=== PATIENT | male | born 1950 | race Caucasian/White ===

== ENCOUNTER 2020-12-02 09:26 | Inpatient (IN) | payer OTHER, MEDICARE ==
[~2020-12-02] VITALS: Ht 175.3 cm; Wt 84.1 kg
[2020-12-02] VITALS (15 sets, daily range): BP systolic 152–177; BP diastolic 82–121
[2020-12-02 09:33] LABS: HEMATOCRIT 42.8 % (42.0-52.0); HEMOGLOBIN 14.3 gm/dL (14.0-18.0); MCH 28.7 pg (26.0-34.0); MCHC 33.5 g/dL (28.0-37.0); MCV 85.7 fL (80.0-100.0); MPV 7.6 fl. (7.2-11.1); RBC 4.99 mil/uL (4.50-6.00); RDW-CV 15.9 % (10.5-14.5); WBC 7.7 thou/uL (4.0-11.0)
[2020-12-02 09:44] LABS: CALCIUM 9.3 mg/dL (8.5-10.1); CREATININE 1.2 mg/dL (0.6-1.3); POTASSIUM 3.1 mmol/L (3.5-5.1)
[2020-12-02 09:49] LABS: ALBUMIN 3.9 g/dL (3.4-5.0); APTT 23.9 Seconds (25.0-31.3); PROTIME 10.3 Seconds (9.20-11.50); TOTAL BILIRUBIN 0.8 mg/dL (<0.1-1.0); TOTAL PROTEIN 8.6 g/dL (6.4-8.2)
[2020-12-02 10:01] LABS: URINE BILIRUBIN NEGATIVE (Negative); URINE BLOOD NEGATIVE (Negative); URINE CLARITY CLEAR; URINE COLOR YELLOW; URINE GLUCOSE-RANDOM NEGATIVE (Negative); URINE KETONES NEGATIVE (Negative); URINE LEUKOCYTES NEGATIVE (Negative); URINE NITRITE NEGATIVE (Negative); URINE PROTEIN NEGATIVE (Negative); URINE SPECIFIC GRAVITY >= 1.030 (1.005-1.030); URINE UROBILINOGEN 0.2 E.U./dl (0.2-1.0)
--- NOTE | 2020-12-02 12:29 | NUR ---
SEE CODE STROKE FLOWSHEET FOR ADDITIONAL DOCUMENTATION.
[2020-12-02 13:40] LABS: MAGNESIUM 1.9 mg/dL (1.8-2.4)
--- NOTE | 2020-12-02 17:15 | NUR ---
PT UNABLE TO GIVE DEFINITIVE INFORMATION ON FAMILY DOCTOR, PHARMACY, OR HOME MED LIST. HAS HAD SOME RX'S FILLED AT [facility] ([phone]), THIS PHARMACY CONFIRMED PREVIOUS RX'S FOR METOPROLOL TARTRATE 100 MG DAILY AND NORVASC (AMLODIPINE) 5MG DAILY PRESCRIBED BY DR DEBBIE HORNER, THESE HAVE NOT BEEN FILLED AT THIS PHARMACY SINCE 02/01/2020. PT SHOWED A PICTURE OF A DR DEBBIE HORNER IN [place] AND AFFIRMS THAT THIS IS HIS PHYSICIAN ([phone]), UNABLE TO CONFIRM THIS SHIFT DUE TO OFFICE BEING CLOSED. PT ALSO HAD RECENT SURGERY AT [facility] (LATE FALL POSSIBLY), THIS MAY BE ANOTHER AVENUE FOR OBTAINING SOME MEDICAL HX AND MED LIST ([phone]).
[2020-12-03] VITALS (25 sets, daily range): BP systolic 130–155; BP diastolic 58–85
[2020-12-03 07:40] LABS: ALBUMIN 3.7 g/dL (3.4-5.0); ALKALINE PHOSPHATASE 77 U/L (46-116); ANION GAP 9 mmol/L (7-16); BUN 15 mg/dL (7-18); CALCIUM 8.6 mg/dL (8.5-10.1); CHLORIDE 102 mmol/L (98-107); CHOLESTEROL 186 mg/dL (<200); CO2 30 mmol/L (21-32); CREATININE 1.2 mg/dL (0.6-1.3); GLUCOSE 103 mg/dL (70-99); HDL CHOLESTEROL 41 mg/dL (>40); LDL CHOLESTEROL 123 mg/dL (<100); POTASSIUM 3.5 mmol/L (3.5-5.1); SGOT 20 U/L (15-37); SGPT 22 U/L (30-65); SODIUM 141 mmol/L (136-145); TC:HDL 4.5 Ratio (Not establshd); TOTAL BILIRUBIN 0.9 mg/dL (<0.1-1.0); TOTAL PROTEIN 8.4 g/dL (6.4-8.2); TRIGLYCERIDE 112 mg/dL (<150); VLDL 22 mg/dL (<40)
[2020-12-03 07:56] LABS: SERUM ASSESSMENT Clear
--- NOTE | 2020-12-03 08:28 | NUR ---
3519 ASSUMED CARE OF PATIENT. PLEASE SEE DOCUMENTED ASSESSMENT AND NIH CHARTING. PLAN IS TO REPEAT HEAD CT THIS MORNING AND WORK WITH THERAPIES
--- NOTE | 2020-12-03 09:53 | NUR ---
LEFT MESSAGE WITH PATIENT'S DAUGHTER ETHAN TO INFORM US OF PATIENT'S MEDICATION LIST
--- NOTE | 2020-12-03 10:55 | NUR ---
MESSAGE LEFT WITH NEUROLOGY TO CALL REGARDING REPEAT CT SCAN.
--- NOTE | 2020-12-03 11:32 | NUR ---
[address] DR QUIÑONES. PT HERE TO WORK WITH PT. SISTER AT BEDSIDE. DAUGHTER CALLED AND STATED THAT PT HAS NO HOME MEDS. SGE FOUND ONLY ONE PRE-OP MEDICATION FROM HIS HIP SURGERY A YEAR AGO.
--- NOTE | 2020-12-03 12:09 | EKG ---
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
--- NOTE | 2020-12-03 12:44 | NUR ---
Nutrition: Pt admitted with stroke. Assessed for Perez score 11. No wounds noted. Wt: 186#. Ground/nectar thick diet. Albumin 3.7. Chart reviewed. No nutrition interventions needed at this time. Mild risk.
--- NOTE | 2020-12-03 14:10 | NUR ---
Admitted from ER by EMS, dound down in [facility]. Est time lapse from last time seen was 45minutes. Pt had emesis around face. EMS reported significant right sided deficient and Dysarthric speech Mental Status upon admission Unable to understand pt but he was attempting to communicate verbally Living Arrangements: Stairs Elevator House Lives with: Lives alone in house Support system: Name Phone number Relationship If different than face sheet Fernanda Darlin [phone] Dtr Can patient return to prior living arrangements? Yes Notes: Family support: pt has sone that lives in [facility]. Another son and dtr who live in [facility]. Fernanda reports all are active in patients life. Activities of daily living: Independent all ADLS Typically drives grandson to school each day, day of event did not due to school being virtual that day Assistive device: No DME used Has had both hips replaced. Prior resource use: Discussed Acute Rehab possiblity due to R sided condition precently Case and plan of care reviewed with MD. CM will continue to follow for discharge planning needs. Anticipate ARU or SNF need at this time.
--- NOTE | 2020-12-03 17:22 | NUR ---
PT PROGRESSING TOWARDS GOALS. CT OF HEAD REPEATED AND RESULTS NOTED. PT ABLE TO WORK WITH THERAPIES AND START MODIFIED DIET. NIH CHARTED. IV FLUIDS STARTED THIS AFTERNOON. FAMILY HAS VISITED
[2020-12-04] VITALS (23 sets, daily range): BP systolic 115–170; BP diastolic 53–125
[2020-12-04 02:06] LABS: GLYCOHEMOGLOBIN (HGB A1C) 5.8 % (4.8-5.6)
--- NOTE | 2020-12-04 06:22 | NUR ---
ASSUMED CARE AT 1900H, ON NC AT 2LPM AND TOLERATED. PT WITH SEVERE APHASIA AND CAN ONLY SAY YES OR N0. PT FOLLOWED COMMANDS. NIH OF 13. NO BLEEDING NOTED. PT GOT FEVERISH AND TYLENOL GIVEN. ARROUND 0400H, PT BECAME LETHURGIC AND HARD TO WAKE UP. NEURO INFORMED WITH ORDER MADE AND CARRIED OUT. STAT CT HEAD DONE WITH NO SIGNIFICANT CHANGES. PT BACK TO INITIAL MENTATION IN MY SHIFT. CONTINUE MONITORING AND TOWARDS GOALS.
--- NOTE | 2020-12-04 13:12 | NUR ---
Case and plan of care reviewed with MD. PT/OT/Sp consulted for eval,Anticipating ARU/SNF need at discharge. Plans is to update LOC to tele and transfer out ICU. CM will continue to follow for discharge planning needs. Awaiting PT/OT/SP evaluations.
--- NOTE | 2020-12-04 13:46 | NUR ---
PT COUGHED ON AND OFF WITH BREAKFAST THIS AM, SPEECH NOTIFIED. POST SPEECH EVALUATION, DIET CHANGED TO MECH GROUND/ HONEY THICK LIQUID. TOLERATED LUNCH SOMEWHAT BETTER WITH NO COUGHS. DISCUSSED WITH DR QUIÑONES, HE WANTS PT MONITORED IN THE ICU TONIGHT. CXR DONE FOR CONCERNS OF ASPIRATION, NO ACUTE PROCESS IDENTIFIED.
--- NOTE | 2020-12-04 14:35 | 2DMMODE ---
[place] [address] 2 D/M-MODE ECHOCARDIOGRAM Name: AKUA WAGNER Room: [address] ADM IN Leobardo#: [id number] Admission: 12/02/20 Attend Phys: Jesika Mg MD Discharge: Date of : 48 Date of Service: 12/04/20 1435 Report #: [id number] THIS REPORT FOR: cc: FAM - Family physician unknown FAM - Family physician unknown Ahsan Hale MD [facility] ~ APPROVED REPORT Study performed: 12/03/2020 15:51:50 EXAM: Comprehensive 2D, Doppler, and color-flow Echocardiogram Patient Location: In-Patient Room #: [facility] Status: routine BSA: 2.00 HR: 82 bpm BP: 146/81 mmHg Rhythm: NSR Other Information Study Quality: Good Indications CVA/TIA CAD Echo Enhancing Agent Indication: Rule out Shunt Agent(s) / Amount(s) Used: Agitated Saline 10 cc 2D Dimensions IVSd: 9.97 (7-11mm) LVOT Diam: 21.20 (18-24mm) LVDd: 43.28 mm PWd: 7.99 (7-11mm) Ascending Ao: 32.93 (22-36mm) LVDs: 27.27 (25-40mm) Aortic Root: 35.02 mm Volumes Left Atrial Volume (Systole) LA ESV Index: 24.10 mL/m2 Aortic Valve AoV Peak Robinson.: 1.38 m/s AO Peak Gr.: 7.56 mmHg LVOT Max P.45 [place] [address] 2 D/M-MODE ECHOCARDIOGRAM Name: KRISTY,HAROLD Room: [address] IN [facility]#: [id number] Admission: 12/02/20 Attend Phys: Jesika Mg MD Discharge: Date of : 48 Date of Service: 12/04/20 1435 Report #: [id number] Mean Gr.: 4.32 mmHg LVOT Mean P.67 mmHg LVOT Max V: 0.93 m/s AO V2 VTI: 24.47 cm LVOT Mean V: 0.59 m/s TARA (VTI): 2.91 cm2 LVOT V1 VTI: 20.20 cm Mitral Valve E/A Ratio: 1.27 MV Decel. Time: 250.70 ms MV E Max Robinson.: 0.68 m/s MV PHT: 72.70 ms MVA (PHT): 3.03 cm2 TDI E/Lateral E': 4.86 E/Medial E': 7.56 Medial E' Robinson.: 0.09 m/s Lateral E' Robinson.: 0.14 m/s Pulmonary Valve PV Peak Robinson.: 1.01 m/s PV Peak Gr.: 4.04 mmHg Left Ventricle The left ventricle is normal size. There is normal LV segmental wall motion. There is normal left ventricular wall thickness. Left ventricular systolic function is normal. The left ventricular ejection fraction is within the normal range. LVEF is 60%. Right Ventricle The right ventricle is normal size. The right ventricular systolic function is normal. Atria The left atrium size is normal. The interatrial septum is intact with no evidence for an atrial septal defect. The right atrium size is normal. Aortic Valve The aortic valve is normal in structure. No aortic regurgitation is present. There is no aortic valvular stenosis. Mitral Valve The mitral valve is normal in structure. Trace mitral regurgitation. No evidence of mitral valve stenosis. Tricuspid Valve The tricuspid valve is normal in structure. Trace tricuspid regurgitation. Unable [place] [address] 2 D/M-MODE ECHOCARDIOGRAM Name: AKUA WAGNER Room: [address] IN ..#: [id number] Admission: 12/02/20 Attend Phys: Jesika Mg MD Discharge: Date of : 48 Date of Service: 12/04/20 1435 Report #: [id number] Pulmonic Valve The pulmonary valve is normal in structure. There is no pulmonic valvular regurgitation. Great Vessels The aortic root is normal in size. IVC is normal in size and collapses >50% with inspiration. Pericardium There is no pericardial effusion. <Conclusion> The left ventricle is normal size. There is normal left ventricular wall thickness. Left ventricular systolic function is normal. The left ventricular ejection fraction is within the normal range. LVEF is 60%. The right ventricle is normal size. The left atrium size is normal. The aortic valve is normal in structure. The mitral valve is normal in structure. The tricuspid valve is normal in structure. IVC is normal in size and collapses >50% with inspiration. There is no pericardial effusion. There is normal LV segmental wall motion. The interatrial septum is intact with no evidence for an atrial septal defect. <ELECTRONICALLY SIGNED> By: Ahsan Hale MD, FACC 12/04/20 1435 1435 1435 Ahsan Hale MD, FACC /INF
--- NOTE | 2020-12-04 16:39 | NUR ---
NIH COMPLETED Q4 AND AT THE 1600 CHECK THE PT HAD REGAINED SLIGHT MOVEMENT/MUSCLE TWITCH IN THE RLE. RIGHT SIDE IS STILL NUMB, RUE CONTINUES TO BE FLACCID. PT ONLY RESPONDS WITH YES/NO RESPONSES. VSS. AFEBRILE. PT WORKED WITH PT/OT/SPEECH TODAY AND DID DANGLE AT THE EOB. PTS DIET WAS MODIFIED D/T POSSIBLE ASPIRATION. NECTAR THICK LIQUIDS WERE CHANGED FOR HONEY THICK AND PT IS ABLE TO TAKE IN PO HONEY THICK FLUIDS W/O COUGHING. DROWSY MOST OF THE DAY, HOWEVER, AROUSES EASILY TO VOICE.
[2020-12-05] VITALS (16 sets, daily range): BP systolic 122–169; BP diastolic 57–85
[2020-12-05 05:52] LABS: CALCIUM 8.6 mg/dL (8.5-10.1); CREATININE 0.8 mg/dL (0.6-1.3); POTASSIUM 3.5 mmol/L (3.5-5.1)
[2020-12-05 05:55] LABS: HEMATOCRIT 39.1 % (42.0-52.0); HEMOGLOBIN 12.9 gm/dL (14.0-18.0); MCH 28.5 pg (26.0-34.0); MCHC 32.9 g/dL (28.0-37.0); MCV 86.5 fL (80.0-100.0); RBC 4.52 mil/uL (4.50-6.00); RDW-CV 15.7 % (10.5-14.5); WBC 9.6 thou/uL (4.0-11.0)
--- NOTE | 2020-12-05 18:00 | NUR ---
SLIGHT IMPROVEMENT IN RT LEG MOBILITY. FAMILY UPDATED. VSS. O2 SATS >92% IN RA. Q2 TURNS FOR SKIN INTEGRITY. ATE 20-30% OF HIS MEALS, FEEDER. TRANSFERRED TO TELE 202 AT 1730.
--- NOTE | 2020-12-05 19:50 | NUR ---
I ASSUMED CARE OF THE PATIENT AT 1730. HE IS ALERT, BUT HAS SEVERE EXPRESSIVE APHASIA AND RIGHT SIDED DEFICIT. HE NEEDS FOOD TO BE PLACED ON THE LEFT SIDE AND NEEDS CUED TO SWALLOW. BED IS IN THE LOW LOCKED POSITION AND CALL LIGHT IS IN REACH. BED ALARM IS ON. HOURLY ROUNDING IS COMPLETED AND PATIENT NEEDS ARE MET. I AGREE WITH PRIOR NURSES ASSESSMENT THIS SHIFT. RIGHT SIDE DOES HAVE SOME TWITCHING, BUT AN NIH OF 19. LAILA IS D/D. SYSTOLIC IS TO REMAIN BETWEEN 130-170 PER NEUROLOGY. HE NEEDS REPOSITIONED EVERY 2 HOURS. WILL CONTINUE TO MONITOR.
[2020-12-06 04:00] VITALS: BP 145/85
[2020-12-06 08:00] VITALS: BP 148/80
[2020-12-06 12:00] VITALS: BP 144/92
--- NOTE | 2020-12-06 18:45 | NUR ---
RECEIVED REPORT. ASSUMED CARE OF PT AROUND 0730. AM ASSESSMENT AND VITALS COMPLETED CHARTED. MEDS PER EMAR. CHIEF DEVELOPMENT OFFICER IN PLACE. NIH CHARTED. FAMILY IN TO VISIT THROUGHOUT THE DAY. TOLERATING MEALS BUT APPETITE IS POOR. DOES LIKE TO DRINK THE HONEY THICK FLUIDS. COMPLETE ASSISTANCE WITH MEALS PROIVIDED. CUED TO SWALLOW -SWALLOW SEEMS TO BE IMPROVING. HOB ELEVATED AT ALL TIMES TO MINIMIZE ASPIRATION. TURNS Q2HRS. ULLOA IN PLACE TO DD. DENIES PAIN. FALL PRECAUTIONS IN PLACE. CALL LIGHT WITHIN REACH. HOURLY ROUNDING PERFORMED.
[2020-12-07] VITALS (7 sets, daily range): BP systolic 130–169; BP diastolic 70–82
--- NOTE | 2020-12-07 01:28 | NUR ---
ASSUMED CARE OF PT AT 1900. PT IS ALERT BUT I AM UNABLE TO KNOW FOR SURE WHETHER HE IS ORIENTED. HE ANSWERS YES AND NO QUESTIONS APPROPRIATLY BUT CANNOT SAY ANY OTHER WORDS. VSS. PERRLA. NO SIGNS OF PAIN. PT HAS A ULLOA IN PLACE. PT IS IN SINUS RYTHM ON THE TELEMETRY. PT IS RESTING COMFORTABLY IN BED. RESPIRATIONS ARE EVEN AND NONLABORED. WILL CONTINUE TO MONITOR PT.
[2020-12-07 04:46] LABS: HEMATOCRIT 39.6 % (42.0-52.0); HEMOGLOBIN 13.1 gm/dL (14.0-18.0); MCH 28.3 pg (26.0-34.0); MCHC 32.9 g/dL (28.0-37.0); MCV 85.8 fL (80.0-100.0); MPV 8.3 fl. (7.2-11.1); RBC 4.62 mil/uL (4.50-6.00); RDW-CV 15.3 % (10.5-14.5); WBC 9.3 thou/uL (4.0-11.0)
[2020-12-07 05:03] LABS: CALCIUM 8.5 mg/dL (8.5-10.1); CREATININE 0.8 mg/dL (0.6-1.3); POTASSIUM 3.3 mmol/L (3.5-5.1)
--- NOTE | 2020-12-07 13:56 | NUR ---
ARU consult pending. [facility] lorenzo ordered for cog and communication. CT today, neuro following. Cardiology signed off. Anticipate dc in a few days.
--- NOTE | 2020-12-07 19:08 | NUR ---
PATIENT DOES NOT ANSWER QUESTIONS WHEN ASKED AND JUST STARES AT STAFF. PATIENT HAS HAD A COUPLE SOFT BM'S TODAY. FLUIDS ADMINISTERED ORDERED. RIGHT SIDED WEAKNESS NOTED. CALL LIGHT AND FREQUENTLY USED ITEMS WITHIN REACH.
[2020-12-08 04:13] VITALS: BP 142/63
[2020-12-08 05:25] LABS: CALCIUM 8.5 mg/dL (8.5-10.1); CREATININE 0.8 mg/dL (0.6-1.3); POTASSIUM 3.3 mmol/L (3.5-5.1)
--- NOTE | 2020-12-08 05:40 | NUR ---
NO ACUTE CHANGES THROUGHOUT SHIFT. SEE CHARTING FOR DETAILS. ALL ROUNDINGS COMPLETED, ALL NEEDS MET. BED LOCKED AND IN LOW POSITION. CALL LIGHT AND PERSONAL ITEMS IN REACH.
[2020-12-08 08:44] VITALS: BP 178/91
[2020-12-08 12:00] VITALS: BP 132/71
--- NOTE | 2020-12-08 13:58 | NUR ---
Neuro following. Therapies seeing. ARU, Pt is a good candidate vs. SNF. Anticipate dc in a few days.
[2020-12-08 16:00] VITALS: BP 129/69
--- NOTE | 2020-12-08 18:18 | NUR ---
ASSUMED PT CARE AT 0730. PT IS ALERT TO NAME AND ANSWERS SOME QUESTIONS WITH ONE WORD RESPONSE. PT HAD DAUGHTER HERE TODAY VISITING. ASSESSMENT COMPLETED AND PT NOTED TO HAVE LOOSE STOOLS, NEW ORDER RECIEVED FOR CDIFF. SPECIMEN OBTAINED AND SENT TO LAB, PT ON ISOLATION PENDING RESULTS. PT UPGRADED TODAY FOR NECTAR THICK LIQUIDS [facility] SOFT DIET, PT TOLERATING WELL. MEDICATIONS ADMINISTERED ORDERED. SAFETY MEASURES IN PLACE AND ROUNDING COMPLETED Q2H. K+ LAB DRAW IN FOR 1600 FOR FOLLOW UP WITH PROTOCOL.
[2020-12-08 20:00] VITALS: BP 165/76
[2020-12-09] VITALS: BP 129/51
[2020-12-09 04:00] VITALS: BP 154/90
[2020-12-09 04:15] LABS: HEMATOCRIT 37.9 % (42.0-52.0); HEMOGLOBIN 12.4 gm/dL (14.0-18.0); MCH 28.4 pg (26.0-34.0); MCHC 32.9 g/dL (28.0-37.0); MCV 86.5 fL (80.0-100.0); MPV 8.3 fl. (7.2-11.1); RBC 4.38 mil/uL (4.50-6.00); RDW-CV 15.1 % (10.5-14.5)
[2020-12-09 04:25] LABS: CALCIUM 8.6 mg/dL (8.5-10.1); CREATININE 0.9 mg/dL (0.6-1.3); POTASSIUM 3.4 mmol/L (3.5-5.1)
[2020-12-09 08:28] VITALS: BP 106/58
--- NOTE | 2020-12-09 09:57 | NUR ---
ASSUMED CARE OF PT THIS AM AROUND 07- KELLER MACHINE OPERATOR IN PLACE ORDERED, TRACING SR- UPON ASSESSMENT PT NOTED TO BE RESTING IN BED- PT ALERT, WITH NOTED CONFUSSION- INCONT OF BOWEL, ULLOA IN PLACE D/D CLEAR AMY URINE- Q 2HOUR TURNS IN PLACE- EXPIRATORY WHEEZES NOTED- VSS, O2 SAT 96% ON RA- ABD SOFT/ROUND/NON-TENDER, BS X4 QUADS- ASSISTANCE REQUIRED WITH MEALS, FAIR PO INTAKE NOTED- TRACE BLE EDEMA NOTED- NO C/O PAIN- CALL LIGHT AND PERSONAL BELONGINGS WITH IN REACH- HOURLY ROUNDS IN PLACE R/T SAFETY/NEEDS- ALL NEEDS MET AT THIS TIME
[2020-12-09 12:00] VITALS: BP 153/89
--- NOTE | 2020-12-09 13:59 | NUR ---
CM confirmed with Pt's dtr that Pt would have family support post dc from ARU if needed, per dtr, between Pt's kids and cousins they would be able to come up with a schedule to stay with Pt. ARU working on insurance auth.
[2020-12-09 16:00] VITALS: BP 150/84
[2020-12-10 04:00] VITALS: BP 134/65
[2020-12-10 04:17] LABS: HEMATOCRIT 38.9 % (42.0-52.0); HEMOGLOBIN 12.7 gm/dL (14.0-18.0); MCH 28.4 pg (26.0-34.0); MCHC 32.6 g/dL (28.0-37.0); MPV 8.3 fl. (7.2-11.1); RBC 4.47 mil/uL (4.50-6.00); RDW-CV 15.3 % (10.5-14.5); WBC 9.3 thou/uL (4.0-11.0)
[2020-12-10 04:28] LABS: CALCIUM 8.6 mg/dL (8.5-10.1); CREATININE 0.8 mg/dL (0.6-1.3); POTASSIUM 3.6 mmol/L (3.5-5.1)
[2020-12-10 07:35] VITALS: BP 149/77
[2020-12-10] MEDS ORDERED: LIPITOR40 MG PO (10:19)
[2020-12-10 12:04] VITALS: BP 145/67
--- NOTE | 2020-12-10 12:51 | NUR ---
Pt discharging to ARU today, updated dtr. Pt will admit to room 321
--- NOTE | 2020-12-10 17:01 | NUR ---
IV, bell, and service vehicle operator discontinued. Pt discharged from unit and up to Rehab unit per bed accompanied by two prop drawer. Report called to JURGEN Krishnamurthy.
== END 2020-12-10 17:00 | DRG 61 ==
LOC: M.ERS 09:26 → M.TBA-ER 11:41 → M.ICU 11:41 → M.2W 12-05 17:46
PROVIDERS: Emergency Medicine; Internal Medicine; ADMIT Family Medicine; ATTEND Family Medicine
DX: I63.512 Cerebral infarction due to unspecified occlusion or stenosis of left middle cerebral artery (principal); G93.41 Metabolic encephalopathy; I61.8 Other nontraumatic intracerebral hemorrhage; G93.6 Cerebral edema; G81.01 Flaccid hemiplegia affecting right dominant side; Z20.822 Contact with and (suspected) exposure to COVID-19; R47.1 Dysarthria and anarthria; E87.6 Hypokalemia; R47.01 Aphasia; R13.10 Dysphagia, unspecified; E78.5 Hyperlipidemia, unspecified; M19.90 Unspecified osteoarthritis, unspecified site

== ENCOUNTER 2020-12-10 10:19 | Inpatient (IN) | payer OTHER, MEDICARE ==
[~2020-12-10] VITALS: Ht 175.3 cm; Wt 81.1 kg
[~2020-12-10 10:19] MED LIST: LIPITOR40 MG PO
[2020-12-10 17:30] VITALS: BP 160/75
--- NOTE | 2020-12-10 18:41 | NUR ---
PT ARRIVED TO THE UNIT PER BED FROM TELE. VSS AFEBRILE PT ADMITTED TO THE REHAB UNIT. PT WAS SAYING YES AND NO TO YES AND NO QUESTIONS. PT HAS INCONTINENCE SINCE ULLOA WAS REMOVED. SKIN IS INTACT WARM AND DRY. WILL CONTINUE TO MONITOR PLANM OF CARE.
[2020-12-10 19:50] VITALS: BP 149/68
--- NOTE | 2020-12-11 04:58 | NUR ---
ASSUMED CARES AT 1915. ALERT. CVA WITH RIGHT SIDE WEAKNESS. MOSTLY NONVERBAL. CAN ANSWER YES OR NO BUT SELDOM REPLIES. RIGHT ARM FLACCID AND RIGHT LEG EXTREMELY WEAK. DENIED ANY PAIN. TOOK PILLS CRUSHED IN PUDDING. NECTAR THICK LIQUIDS. URINARY INCONTINENCE FEW TIMES OVERNIGHT. TURNED ONTO SIDES WHILE IN BED. CALL LIGHT IN REACH AND BED ALARM ON.
[2020-12-11 05:37] LABS: HEMATOCRIT 40.2 % (42.0-52.0); HEMOGLOBIN 13.4 gm/dL (14.0-18.0); MCH 28.8 pg (26.0-34.0); MCHC 33.2 g/dL (28.0-37.0); MCV 86.6 fL (80.0-100.0); MPV 7.9 fl. (7.2-11.1); RBC 4.64 mil/uL (4.50-6.00); WBC 8.7 thou/uL (4.0-11.0)
[2020-12-11 05:48] LABS: CALCIUM 9.2 mg/dL (8.5-10.1); CREATININE 0.8 mg/dL (0.6-1.3); POTASSIUM 3.5 mmol/L (3.5-5.1)
[2020-12-11 07:30] VITALS: BP 142/71
[2020-12-11 10:54] LABS: MAGNESIUM 1.8 mg/dL (1.8-2.4); PHOSPHORUS* 3.9 mg/dL (2.5-4.9)
--- NOTE | 2020-12-11 16:00 | NUR ---
PT WORKED WITH THERAPIES. UP WITH GAIT BELT, WALKER, AND ASSIST X2. INCONT OF URINE. BLADDER SCAN 123. DYSPHASIA AND APHASIA. SHAKES HEAD YES AND NO TO SOME QUESTIONS. PLACED ON CALORIE COUNT. POOR PO INTAKE. MECH CHOPPED, NECTAR THICKENED LIQUIDS. DAUGHTER HERE AND BROUGHT CLOTHING. FALL PRECAUTIONS IN PLACE. BED ALRM ON. CALL LIGHT IN REACH.
--- NOTE | 2020-12-11 16:43 | NUR ---
INITIAL ASSESSMENT: PATIENT ADMITTED TO THE [facility] ACUTE REHAB UNIT ON 12/10/20 WITH A DIAGNOSIS OF CVA. PATIENT ONLY ABLE TO ANSWER YES NO QUESTIONS AT THIS TIME, AND GAVE PERMISSION TO CONTACT HIS DTR TO COMPLETE CM ASSESSMENT. PT'S DTR INFORMS THAT PRIOR TO ADMIT PT A&O, INDEPENDENT, ACTIVE, AND ABLE TO DRIVE. PT RESIDED AT HOME ALONE. PT USED 0 DME. PT HAS 0 HX OF HH OR SNF. PT'S DTR INFORMS THAT THE PT [place]AMP[place] A LOT OF FAMILY AND THEY ARE ABLE TO ASSIST HIM AT D/C IF NEEDED. CM ORIENTED PT AND HIS DTR TO THE REHAB UNIT AND PROCESSES, RESIDENTS RIGHTS INFO, TEAM CONFRENCE, AND TO THE ROLE OF CM. CM WILL REMAIN AVAILABLE TO ASSIST AND FOLLOW NEEDED.
[2020-12-11 19:55] VITALS: BP 130/66
--- NOTE | 2020-12-12 02:06 | NUR ---
PT A&O, EXPRESSIVE APHASIA. PILL CRUSHED AND GIVEN WITH PUDDING. DENIED PAIN. INCONTINENT OF BLADDER. TURNS, HOURLY ROUNDINGS COMPLETED. WILL CONTINUE TO MONITOR.
[2020-12-12 08:00] VITALS: BP 126/76
--- NOTE | 2020-12-12 16:06 | NUR ---
PT WORKED WITH ST, OT, AND PT TODAY. PT SAT UP ON HIS CHAIR FOR A COUPLE OF HOURS ASKED SEVERAL TIMES IF HE WANTED HIS FEET UP OR TO GET BACK INTO BED PT SAID NO. THEN HE CALLED OUT WANTING TO GET INTO HIS BED. VSS AFEBRILE. PT UP AND WALKED A COUPLE OF STEPS TO HIS BED AND LAYED DOWN NOW HE IS RESTING COMFORTABLY. WILL CONTINUE TO MONITOR PLAN OF CARE.
[2020-12-12 20:15] VITALS: BP 140/71
--- NOTE | 2020-12-12 20:20 | NUR ---
RESTING QUIETLY IN BED AND WATCHING TV. NON VERBAL AT THIS TIME. TOOK MEDICATIONS CRUSHED WITH APPLESAUCE FOLLOWED WITH NECTAR THICKENED APPLE JUICE. TYLENOL GIVEN FOR COMPLAINT OF LEFT HAND PAIN. LEFT WRIST RED. CALL LIGHT WITHIN REACH.
--- NOTE | 2020-12-13 04:57 | NUR ---
RESTED QUIETLY. INCONTINENT OF URINE. SOPHIE CARE GIVEN. ASSISTED WITH REPOSITIONING. THIS MORNING TURNED HISSELF. HOURLY ROUNDING IN PROGRESS.
[2020-12-13 08:00] VITALS: BP 123/65
--- NOTE | 2020-12-13 15:58 | NUR ---
PT WAS SITTING UP IN HIS RECLINER TODAY BEFORE AND AFTER LUNCH. PT MOTIONED TO GO BACK TO BED. PT PLACED IN BED AND COVERED UP, PT IS RESTING WITH HIS EYES CLOSED. VSS AFEBRILE. PT STARTED ON LEXAPRO TODAY FOR DEPRESSION. WILL CONTINUE TO MONITOR PLAN OF CARE.
--- NOTE | 2020-12-13 17:37 | NUR ---
PT HAS HAD A MEDUIM BM AND HE TOLD US WHEN HE HAD TO VOID AND HAVE BM. PT DID BOTH ON THE BSC.
--- NOTE | 2020-12-13 19:30 | NUR ---
RESTING QUIETLY IN BED AND WATCHING TV. DENIES DISCOMFORT. ANSWERS YES/NO QUESTIONS. CALL LIGHT WITHIN REACH.
[2020-12-13 19:44] VITALS: BP 148/76
--- NOTE | 2020-12-14 05:29 | NUR ---
RESTED QUIETLY. INCONTINENT OF URINE. SOPHIE CARE GIVEN. HOURLY ROUNDING IN PROGRESS.
[2020-12-14 08:00] VITALS: BP 129/66
--- NOTE | 2020-12-14 18:21 | NUR ---
ALERT AND ORIENTED WITH EXPRESSIVE APHASIA. HAS RIGHT SIDED WEAKNESS WITH RIGHT ARM FLACCID. TRANSFERS WITH 2 ASSIST, GAIT BELT AND WALKER. DRESSING CHANGED TO LEFT WRIST WOUND. REMAINS ON NECTAR LIQUIDS. TAKES PILLS CRUSHED AND IN PUDDING. USES CALL LIGHT AND PICTURE BOARD TO ASK FOR HELP. FALL PRECAUTIONS IN PLACE BED ALARM AND CHAIR ALARM USED.
[2020-12-14 19:00] VITALS: BP 134/79
--- NOTE | 2020-12-14 19:30 | NUR ---
SITTING UP IN RECLINER WATCHING TV. DENIES DISCOMFORT. ANSWERS YES/NO QUESTIONS. CALL LIGHT WITHIN REACH.
--- NOTE | 2020-12-15 05:06 | NUR ---
RESTED ON/OFF. USED URINAL DURING THE NIGHT. HOURLY ROUNDING IN PROGRESS.
[2020-12-15 08:10] VITALS: BP 137/62
--- NOTE | 2020-12-15 15:14 | NUR ---
RE TEAM: PT DALJIT/MAIRETTA DOES NOT HAVE ANY QUESTION, BUT WOULD LIKE A CALL AFTER TEAM W/AN UPDATE.
--- NOTE | 2020-12-15 16:44 | NUR ---
PT WORKED WITH THERAPIES. UP WITH GAIT BELT, WALKER, AND ASSIST X2. CONTINUED APHASIA. ANSWERS Y/N QUESTIONS. VOIDS PER URINAL. FALL PRECAUTIONS IN PLACE. CALL LIGHT IN REACH.
[2020-12-15 19:00] VITALS: BP 140/74
[2020-12-16 05:36] LABS: HEMATOCRIT 41.2 % (42.0-52.0); HEMOGLOBIN 13.4 gm/dL (14.0-18.0); MCH 28.3 pg (26.0-34.0); MCHC 32.6 g/dL (28.0-37.0); MCV 86.8 fL (80.0-100.0); MPV 7.9 fl. (7.2-11.1); RBC 4.74 mil/uL (4.50-6.00); RDW-CV 14.9 % (10.5-14.5); WBC 6.9 thou/uL (4.0-11.0)
[2020-12-16 05:44] LABS: CALCIUM 9.2 mg/dL (8.5-10.1); CREATININE 0.8 mg/dL (0.6-1.3); POTASSIUM 3.3 mmol/L (3.5-5.1)
[2020-12-16 07:52] VITALS: BP 141/80
--- NOTE | 2020-12-16 16:05 | NUR ---
PT WORKED WITH THERAPIES. UP WITH WALKER, GAIT BELT, AND ASSIST X2. APHASIA. IS ABLE TO SAY YES AND NOD HEAD Y/N TO QUESTIONS. WOUND TO L WRIST WITH BAND AIDE AND ANTIBIOTIC ONTMENT. PILLS CRUSHED IN PUDDING. DENIES PAIN. KCL 3.3. REPLACEMENT GIVEN. FALL PRECAUTIONS IN PLACE. CALL LIGHT IN REACH.
--- NOTE | 2020-12-16 19:40 | NUR ---
RESTING QUIETLY IN BED. DENIES DISCOMFORT. CALL LIGHT WITHIN REACH.
[2020-12-16 20:00] VITALS: BP 113/66
--- NOTE | 2020-12-17 04:56 | NUR ---
RESTED QUIETLY. TURNS SELF IN BED. USED URINAL X ONE. HOURLY ROUNDING IN PROGRESS.
[2020-12-17 07:50] VITALS: BP 140/83
--- NOTE | 2020-12-17 15:39 | NUR ---
TEAM CONFRENCE MEETING HELD YESTERDAY. INFORMED PT AND DTR BROOK OF PLAN TO RE-TEAM AND HAVE PT REMAIN ON THE UNIT FOR ANOTHER WEEK TO CONTINUE THERAPIES. TP PROGRESSING WELL TOWARDS GOALS, BUT BARRIERS ARE APHASIA, APRAXIA, COGNITION, RIGHT UE/LE HEMIPARESIS, AND DECREASED BALANCE. CM WILL REMAIN AVAILABLE TO ASSIST AND FOLLOW NEEDED.
--- NOTE | 2020-12-17 16:42 | NUR ---
PATIENT COMPLETED THERAPIES ORDERED. UP WITH ASSISTANCE; GAIT BELT AND WALKER. PATIENT HAD A BM VIA TOILET THIS SHIFT. PATIENT ATTEMPTED TO USE URINAL THIS EVENING BUT DID NOT HAVE TO VOID AT THE TIME. PATIENT WAS BLADDER SCANNED BUT ONLY 155MLS SHOWING. PATIENT HAD VIDEO SWALLOW THIS AM, ADVANCED TO MECH CHOPPED DIET BUT REMAINS ON NECTAR THICKENDED LIQUIDS. UP TO CHAIR FOR MEALS.
[2020-12-17 20:24] VITALS: BP 117/61
--- NOTE | 2020-12-18 04:44 | NUR ---
ASSUMED PT CARE AT 1930. PT ALERT AND ORIENTED X4, ANSWERS QUESTIONS WITH YES OR NO. RIGHT HEMIPARESIS, EXPRESSIVE APHASIA AND DYSPHAGIA. TAKES PILLS CRUSHED IN PUDDING. LE[place]ON PAIN. TURNS SELF. USED URINAL X1 OVERNIGHT. SLEPT WELL OVERNIGHT. CALL LIGHT IN REACH, BED ALARM ON FOR SAFETY. HOURLY ROUNDING IN PROGRESS, WILL CONTINUE TO MONITOR.
[2020-12-18 07:30] VITALS: BP 152/79
--- NOTE | 2020-12-18 17:35 | NUR ---
PATIENT UP WITH MOD ASSISTANCE; GAIT BELT AND WALKER. NO BM NOTED THIS SHIFT. NO COMPLAINTS OF PAIN. WOUND TO LEFT WRIST IMPROVING, SCHED BACTROBAN TID. PILLS CRUSHED IN PUDDING.
[2020-12-18 19:55] VITALS: BP 143/74
--- NOTE | 2020-12-19 04:58 | NUR ---
ASSUMED PT CARE AT 1930. PT ALERT AND ORIENTED X4, ANSWERS QUESTIONS WITH YES OR NO. RIGHT HEMIPARESIS, EXPRESSIVE APHASIA AND DYSPHAGIA. TAKES PILLS CRUSHED IN PUDDING. DENIES PAIN. TURNS SELF IN BED. USED URINAL X1 OVERNIGHT. SLEPT WELL. CALL LIGHT IN EACH, BED ALARM ON FOR SAFETY. HOURLY ROUNDING IN PROGRESS, WILL CONTINUE TO MONITOR.
[2020-12-19 08:06] VITALS: BP 134/60
--- NOTE | 2020-12-19 16:17 | NUR ---
PT UP WITH GAIT BELT, WALKER , AND ASSIST X2. UP TO WHEELCHAIR FOR MEALS. L WRIST DRESSING CHANGED AND ANTIBIOTIC OINTMENT PUT ON. DENIES PAIN. BROTHER HERE TO VISIT. FALL PRECAUTIONS IN PLACE. CALL LIGHT IN REACH.
[2020-12-19 19:00] VITALS: BP 133/73
--- NOTE | 2020-12-20 05:12 | NUR ---
ASSUMED PT CARE AT 1930. PT ALERT AND ORIENTED X4, POLITE AND COOPERATIVE WITH CARES. RIGHT HEMIPARESIS, EXPRESSIVE APHASIA AND DYPHAGIA. TAKES PILLS CRUSHED IN PUDDING. DENIES PAIN. TURNS SELF IN BED. USED URINAL OVERNIGHT TO VOID. SLEPT WELL. CALL LIGHT IN REACH, BED ALARM ON FOR SAFETY. HOURLY ROUNDING IN PROGRESS, WILL CONTINUE TO MONITOR.
[2020-12-20 07:46] VITALS: BP 129/81
--- NOTE | 2020-12-20 16:39 | NUR ---
PT UP WITH 1 TO 2 ASSIST. UP TO CHAIR. UNSTEADY. BANDAGE TO L WRIST CHANGED AND ANTIBIOTIC OINTMENT APPLIED. ANSWERS Y/N QUESTIONS. DAUGHTER HERE TO VISIT. FALL PRECAUTIONS IN PLACE. CALL LIGHT IN REACH.
[2020-12-20 20:13] VITALS: BP 138/86
--- NOTE | 2020-12-21 04:59 | NUR ---
ASSUMED CARES AT 1920. ALERT. ANSWERS YES OR NO OR NOT AT ALL. FLAT AFFECT. RIGHT SIDE WEAKNESS. PILLS CRUSHED WITH PUDDING AND NECTAR THICK LIQUIDS. USED URINAL. DENIED ANY PAIN. SLEPT OFF AND ON. CALL LIGHT IN REACH AND BED ALARM ON.
[2020-12-21 07:47] VITALS: BP 127/75
--- NOTE | 2020-12-21 16:20 | NUR ---
PT WORKED WITH THERAPIES. UP WITH ASSIST X2 AND GAIT BELT. DENIES PAIN. R MARK ANTHONY. WOUND TO L WRIST CLAENED WITH SOAP AND WATER. ANTIBIOTIC OINTMENT PLACED AND BAND AIDE PUT ON. ANSWERS Y/N QUESTIONS. FALL PRECAUTIONS IN PLACE. CALL LIGHT IN REACH.
[2020-12-21 19:00] VITALS: BP 143/75
--- NOTE | 2020-12-22 04:25 | NUR ---
ASSUMED PT CARE AT 1930. ALERT AND ORIENTED X4. ANSWERS QUESTIONS YES OR NO. FLAT AFFECT. RIGHT SIDE WEAKNESS. TAKES PILLS CRUSHED IN VANILLA PUDDING. ON NECTAR THICK LIQUIDS. USES URINAL OVERNIGHT. PT UP TO BATHROOM WITH GAITBELT, WHEELCHAIR AND ASSIST OF TWO, BUT NO STOOL. DENIED PAIN. SLEPT OFF AND ON. ANTIBIOTIC OINTMENT TO LEFT WRIST WOUND. CALL LIGHT IN REACH, BED ALARM ON FOR SAFETY. HOURLY ROUNDING IN PROGRESS, WILL CONTINUE TO MONITOR.
[2020-12-22 07:30] VITALS: BP 141/72
--- NOTE | 2020-12-22 09:24 | NUR ---
CM S/W WITH PT'S DTR, ETHAN, RE TOMORROW'S TEAM. MARIETTA HAD [facility] R/T MEDICATION AND WHAT AREA IN THE RIGHT BRAIN WAS IMPACTED. CM PROVIDED BROOK W/UNIT NUMBER GENERAL QUESTION CAN BE ANSWERED BY NURSE. MARIETTA ALSO WANTS TO KNOW HOW IS PT'S RIGHT ARM IMPROVING AND/OR WILL IT IMPROVE.
--- NOTE | 2020-12-22 16:32 | NUR ---
PATIENT COMPLETED THERAPIES THIS SHIFT ORDERED. UP WITH ASSISTANCE, GAIT BELT AND WALKER. PATIENT WHEELED TO TOILET, BM NOTED. NEURO CONSULTED REGARDING POSSIBLE START ON BLOOD THINNER, DR. FRANKLIN HERE THIS EVENING AND AWAITING ANY ORDERS.
[2020-12-22 20:03] VITALS: BP 133/83
--- NOTE | 2020-12-23 05:04 | NUR ---
ASSUMED PT CARE AT 1930. PT ALERT AND ORIENTED X4. ANSWERS QUESTIONS YES OR NO. FLAT AFFECT. RIGHT SIDE WEAKNESS. TAKES PILLS CRUSHED IN [place] PUDDING. ON NECTAR THICK LIQUIDS. USED URINAL X2 OVERNIGHT. DENIES PAIN. SLEPT MOST OF NIGHT. ANTIBIOTIC OINTMENT OF LEFT WRIST WOUND. CALL LIGHT IN REACH, BED ALARM ON FOR SAFETY. HOURLY ROUNDING IN PROGRESS, WILL CONTINUE TO MONITOR.
[2020-12-23 05:20] LABS: HEMATOCRIT 46.8 % (42.0-52.0); HEMOGLOBIN 15.7 gm/dL (14.0-18.0); MCH 29.1 pg (26.0-34.0); MCHC 33.5 g/dL (28.0-37.0); MCV 86.7 fL (80.0-100.0); MPV 9.2 fl. (7.2-11.1); RBC 5.39 mil/uL (4.50-6.00); RDW-CV 14.9 % (10.5-14.5); WBC 8.5 thou/uL (4.0-11.0)
[2020-12-23 05:26] LABS: CALCIUM 9.7 mg/dL (8.5-10.1); POTASSIUM 3.6 mmol/L (3.5-5.1)
[2020-12-23 05:52] VITALS: BP 112/76
--- NOTE | 2020-12-23 14:30 | EKG ---
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1950 Requested By: Rashad Calle Order Number: [id number] Reading MD: Ahsan Hale Measurements Intervals [place] Rate: 171 P: RI: QRS: 13 QRSD: 92 T: 20 QT: 288 QTc: 486 Interpretive Statements Atrial fibrillation with rapid V-rate Rare PVCs Low voltage, extremity and precordial leads Repolarization abnormality, prob rate related Compared to ECG 12/02/2020 09:33:17 Atrial fibrillation with a rapid response is noted Low QRS voltage now present Sinus rhythm no longer present Electronically Signed On 12-23-2020 14:30:24 CDT by Ahsan Hale [email or web address] <ELECTRONICALLY SIGNED> By: Ahsan Hale MD, [facility] 12/23/20 1430 1323 1323 Ahsan Hale MD, [facility] /EPI
--- NOTE | 2020-12-23 14:48 | EKG ---
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1950 Requested By: Rashad Calle Order Number: [id number] Reading MD: Ahsan Hale Measurements Intervals [place] Rate: 168 P: TN: QRS: 16 QRSD: 70 T: 4 QT: 277 QTc: 464 Interpretive Statements Atrial fibrillation with rapid V-rate Occasional wide QRS beats which may reflect aberrant conduction ST depression, probably rate related Compared to ECG 12/23/2020 13:23:40 ST (T wave) deviation persists Electronically Signed On 12-23-2020 14:47:48 CDT by Ahsan Hale [email or web address] <ELECTRONICALLY SIGNED> By: Ahsan Hale MD, [facility] 12/23/20 1447 1347 1347 Ahsan Hale MD, [facility] /EPI
[2020-12-23] MEDS ORDERED: PACERONE 200 M200 M1 PO ×2 (16:47)
[2020-12-23] MEDS ORDERED: LEXAPRO 10 MG T10 M2 PO ×2 (16:51)
[2020-12-23] MEDS ORDERED: MUPIROCIN1 GM TOP ×2 (16:52)
--- NOTE | 2020-12-28 13:07 | NUR ---
PLAN OF CARE: CM INFORMED BY INPT FOREST WORKER OF INSURANCE APPROVAL FOR INPT REHAB. PLAN FOR PT TO D/C TODAY FROM ACUTE AND TRANSFER UP TO INPT ARU. RN INFORMED PT'S DTR OF PLAN FOR PT TO TRANSFER BACK TO INPT REHAB TODAY. PT'S DTR IN AGREEMENT. CM WILL REMAIN AVAILABLE TO ASSIST AND FOLLOW NEEDED.
== END 2020-12-23 15:30 | disposition short-term general hospital (02) | DRG 56 ==
LOC: M.REH 10:19 → M.2W 12-23 15:20 → M.REH 12-23 15:20 → M.2W 12-23 15:30 → M.REH 12-23 15:30 → M.2W 12-23 15:30
PROVIDERS: Internal Medicine; ADMIT Physical Medicine & Rehabilitation; ATTEND Physical Medicine & Rehabilitation
DX: I69.351 Hemiplegia and hemiparesis following cerebral infarction affecting right dominant side (principal); I63.89 Other cerebral infarction; I61.9 Nontraumatic intracerebral hemorrhage, unspecified; G93.41 Metabolic encephalopathy; R47.01 Aphasia; F10.11 Alcohol abuse, in remission; E87.6 Hypokalemia; M19.90 Unspecified osteoarthritis, unspecified site; I48.0 Paroxysmal atrial fibrillation; E78.5 Hyperlipidemia, unspecified; Z79.899 Other long term (current) drug therapy

== ENCOUNTER 2020-12-23 14:17 | Inpatient (IN) | payer OTHER, MEDICARE ==
[~2020-12-23] VITALS: Ht 175.3 cm; Wt 80.8 kg
--- NOTE | ~2020-12-23 | CON ---
[address] [address] CONSULTATION Name: AKUA WAGNER Room: [address] IN .R.#: [id number] Admission: 12/23/20 Attend Phys: Nhan Parra Discharge: Date of : 48 Report #: [id number] THIS REPORT FOR: cc: CHRISTIANE - No family physician/PCP FAM - No family physician/PCP Stanley Jaimes MD ~ DOC #: [id number] Stanley Jaimes MD DATE OF CONSULTATION: 12/24/2020 HISTORY OF PRESENT ILLNESS: This is a 70-year-old male patient for whom a consultation was requested to evaluate the patient's timing for anticoagulation. The patient is known to me. He had a left hemispheric CVA. He had some hemorrhagic conversion, which was not very prominent. He was in the rehab and he was noticed to be in atrial fibrillation. The original plan in this patient was to get a prolonged monitoring as an outpatient to look for atrial fibrillation, which is not necessary now. The patient was transferred to acute care because of atrial fibrillation and cardiology requested a consult to see when anticoagulation can be started. REVIEW OF SYSTEMS: We talked to the family, they think he is getting somewhat better. He had some history of esophageal dilatation, remote alcohol abuse, shoulder surgery. Rest of the 14-point review of system is noncontributory. PAST MEDICAL HISTORY: Positive for stroke, which happened recently. No cause was apparent when he was in acute care, but since his vasculature was clean, atrial fibrillation was suspected and he was going to be further evaluated for that and now the atrial fibrillation has been documented. FAMILY HISTORY: Unremarkable. SOCIAL HISTORY: He used to drink alcohol, but does not do it now. PHYSICAL EXAMINATION: The patient's examination is limited because he is still aphasic. He is able to comprehend many instructions, but other instructions he cannot comprehend. He is alert and basically has no speech output. He can sometimes follow simple commands. Cranial nerve examination was attempted. I cannot tell about hemianopsia, but he has a right facial palsy. He barely has any movement in the right upper extremity, but can move the right lower extremity. There is no meningeal sign. I could not look at his fundus. He does not understand the instructions to do the sensory examination or fundus examination. He is moderately built individual. His vision and hearing look adequate. His blood pressure is 129/71, respirations 18, pulse is 78, temperature is 97.1. He was found to be in atrial fibrillation[place] [address] CONSULTATION Name: AKUA WAGNER Room: [address] IN [facility]#: [id number] Admission: 12/23/20 Attend Phys: Nhan Parra Discharge: Date of : 48 Report #: [id number] have any respiratory difficulty. Does not have any edema, carotid bruit or thyroid mass. LABORATORY DATA: Indicate a normal sodium and I reviewed his old data and his last CT scan was done the last month and did demonstrate slight hemorrhage, but it is small. 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 Embolic stroke typically does become hemorrhagic. I discussed with the family in front of the patient. I do not know how much the patient understands. I discussed with them that he is going to be a high risk for anticoagulation, bleeding complication, but he is going to be on a very high risk for having a stroke if we do not anticoagulate him. When the anticoagulation can be started is subjective, but typically after [address] scan showed clearance of hemorrhage, anticoagulation can be started. His hemorrhage was small enough that I think it should have cleared up and probably he should be okay to start the anticoagulation, but his risk is always going to be higher than the general population both because of his stroke and because stroke becoming hemorrhagic. Family understand that they want to proceed with anticoagulation and we will look at his CT scan and if CT scan is okay then he can be started on anticoagulation. Thank you very much for this referral and if you have any questions, please feel free to contact me. Stanley Jaimes MD PK/SALIMA/LIBERTY By: [id number] Jaimes MD /nt
[2020-12-23 16:00] VITALS: BP 121/92
[2020-12-23] MEDS ORDERED: PACERONE 200 M200 M1 PO ×2 (16:47)
[2020-12-23] MEDS ORDERED: LEXAPRO 10 MG T10 M2 PO ×2 (16:51)
[2020-12-23] MEDS ORDERED: MUPIROCIN1 GM TOP ×2 (16:52)
[2020-12-23 17:40] LABS: CALCIUM 9.6 mg/dL (8.5-10.1)
[2020-12-23 17:43] LABS: MAGNESIUM 1.9 mg/dL (1.8-2.4)
[2020-12-24] VITALS: BP 128/80
[2020-12-24 04:00] VITALS: BP 140/80
[2020-12-24 08:00] VITALS: BP 151/91
--- NOTE | 2020-12-24 10:02 | NUR ---
CM ASSESSMENT: PT TRANSFERRED DOWN FROM ACUTE INPT REHAB UNIT D/T AFIB RVR. PLAN FOR PT TO RETURN TO ARU WHEN MEDICALLY STABLE. PRIOR TO PT'S ACUTE ADMIT D/T STROKE PT RESIDED AT HOME ALONE, AND WAS ACTIVE INDEPENDENT AND ABLE TO DRIVE. PT USES 0 DME FOR MOBILITY, AND HAD NO PREVIOUS HX OF HH OR SNF. CM WILL REMAIN AVAILABLE TO ASSIST AND FOLLOW NEEDED.
[2020-12-24 11:27] VITALS: BP 161/74
--- NOTE | 2020-12-24 13:25 | EKG ---
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1950 Requested By: Cate Kaplan Order Number: [id number] Reading MD: Galileo Adrian Measurements Intervals [place] Rate: 87 P: 57 TX: 137 QRS: 20 QRSD: 86 T: 50 QT: 393 QTc: 473 Interpretive Statements Sinus rhythm Borderline low voltage, extremity leads Compared to ECG 12/23/2020 13:47:58 Atrial fibrillation no longer present Aberrant conduction of supraventricular beat(s) no longer present ST (T wave) deviation no longer present Electronically Signed On 12-24-2020 13:25:03 CDT by Galileo Adrian [email or web address] <ELECTRONICALLY SIGNED> By: Galileo Adrian MD, [facility] 12/24/20 1325 0942 Galileo Adrian MD, [facility] /EPI
[2020-12-24 16:00] VITALS: BP 129/71
[2020-12-24 20:00] VITALS: BP 148/90
[2020-12-25 00:35] VITALS: BP 108/66
[2020-12-25 04:30] VITALS: BP 109/61
[2020-12-25 08:15] VITALS: BP 121/76
[2020-12-25] MEDS ORDERED: ELIQUIS5 MG PO ×2 (13:54)
--- NOTE | 2020-12-25 16:27 | NUR ---
PLAN OF CARE: PT NOW MEDICALLY STABLE TO RETURN TO INPT REHAB. INPT REHAB LIAISION INFORMED AND TO SPEAK WITH INSURANCE TO DETERMINE NEED FOR PT TO HAVE NEW AUTH TO RETURN TO ARU. CM WILL REMAIN AVAILABLE TO ASSIST AND FOLLOW NEEDED.
--- NOTE | 2020-12-25 16:56 | EKG ---
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1950 Requested By: Cate Kaplan Order Number: [id number] Randall MD: Ahsan Hale Measurements Intervals [place] Rate: 78 P: 61 RI: 147 QRS: 8 QRSD: 85 T: 47 QT: 526 QTc: 600 Interpretive Statements Sinus rhythm Borderline low voltage, extremity leads Prolonged QT interval Compared to ECG 12/24/2020 09:42:45 Prolonged QT interval now present Electronically Signed On 12-25-2020 16:56:16 CDT by Ahsan Hale [email or web address] <ELECTRONICALLY SIGNED> By: hAsan Hale MD, [facility] 12/25/20 1656 1308 1308 Ahsan Hale MD, [facility] /EPI
[2020-12-25 20:00] VITALS: BP 133/72
--- NOTE | 2020-12-25 20:39 | NUR ---
Pt remained A&O x4 for entire shift. Pt pleasant with staff but a man of very few words. Pt did respond appropriately to questions. Pt denies any pain. Bed in low position, call light within reach.
[2020-12-25 23:59] VITALS: BP 131/79
[2020-12-26 04:43] LABS: HEMATOCRIT 40.7 % (42.0-52.0); MCH 29.2 pg (26.0-34.0); MCHC 33.7 g/dL (28.0-37.0); MCV 86.6 fL (80.0-100.0); MPV 9.6 fl. (7.2-11.1); RBC 4.7 mil/uL (4.50-6.00); RDW-CV 15.1 % (10.5-14.5); WBC 7.6 thou/uL (4.0-11.0)
[2020-12-26 05:00] LABS: CALCIUM 9.2 mg/dL (8.5-10.1); POTASSIUM 3.4 mmol/L (3.5-5.1)
[2020-12-26 06:20] LABS: HEMOGLOBIN 13.7 gm/dL (14.0-18.0)
[2020-12-26 08:49] VITALS: BP 123/82
[2020-12-26 11:52] VITALS: BP 142/72
[2020-12-26 20:00] VITALS: BP 127/82
[2020-12-27 05:24] LABS: HEMOGLOBIN 13.6 gm/dL (14.0-18.0); MCH 28.6 pg (26.0-34.0); MCHC 33.1 g/dL (28.0-37.0); MCV 86.3 fL (80.0-100.0); MPV 9.6 fl. (7.2-11.1); RBC 4.75 mil/uL (4.50-6.00); RDW-CV 14.8 % (10.5-14.5); WBC 7.2 thou/uL (4.0-11.0)
[2020-12-27 05:40] LABS: CREATININE 0.9 mg/dL (0.6-1.3); POTASSIUM 3.4 mmol/L (3.5-5.1)
[2020-12-27 08:19] VITALS: BP 141/86
[2020-12-27 12:00] VITALS: BP 141/85
[2020-12-27 20:00] VITALS: BP 152/83
[2020-12-27 23:30] VITALS: BP 123/78
--- NOTE | 2020-12-28 04:14 | NUR ---
ASSUMED CARE OF PT AFTER REPORT AT 1930. PT A&OX4. APHASIA NOTED. ABLE TO ANSWER Y/NO QUESTIONS. PT ON RA. PT ON MEDSURG STATUS. PT UP WITH 2 ASSIST TO BSC. PT DENIES ANY PAIN. CALL LIGHT WITHIN REACH.
[2020-12-28 10:20] VITALS: BP 123/78
--- NOTE | 2020-12-28 12:30 | NUR ---
PT RESTING.VSS ON RA. PT TO DC TO REHAB. REPORT CALLED TO [facility] WHO ACCEPTED PT WITHOUT FURTHER QUESTIONS.
--- NOTE | 2020-12-28 13:53 | EKG ---
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1950 Requested By: Cate Kaplan Order Number: [id number] Reading MD: Carlos Steve Measurements Intervals [place] Rate: 74 P: 40 ND: 146 QRS: 32 QRSD: 78 T: 34 QT: 396 QTc: 440 Interpretive Statements Sinus rhythm Borderline low voltage, extremity leads Abnormal R-wave progression, early transition Compared to ECG 12/25/2020 13:08:31 Prolonged QT interval no longer present Electronically Signed On 12-28-2020 13:53:09 CDT by Carlos Steve [email or web address] <ELECTRONICALLY SIGNED> By: Carlos Steve MD, [facility] 12/28/20 1353 1118 1118 Carlos Steve MD, [facility] /EPI
== END 2020-12-28 13:00 | DRG 291 ==
LOC: M.2W 14:17
PROVIDERS: Registered Nurse; ADMIT Internal Medicine; ATTEND Internal Medicine
DX: I50.33 Acute on chronic diastolic (congestive) heart failure (principal); G93.41 Metabolic encephalopathy; I48.20 Chronic atrial fibrillation, unspecified; I69.354 Hemiplegia and hemiparesis following cerebral infarction affecting left non-dominant side; R47.01 Aphasia; K21.9 Gastro-esophageal reflux disease without esophagitis; F10.11 Alcohol abuse, in remission; E87.6 Hypokalemia; E78.5 Hyperlipidemia, unspecified; Z20.822 Contact with and (suspected) exposure to COVID-19; Z79.899 Other long term (current) drug therapy

== ENCOUNTER 2020-12-28 10:40 | Inpatient (IN) | payer OTHER, MEDICARE ==
[~2020-12-28] VITALS: Ht 190.5 cm; Wt 80.8 kg
[~2020-12-28 10:40] MED LIST changes: +ELIQUIS5 MG PO; +LEXAPRO 10 MG T10 M2 PO; +MUPIROCIN1 GM TOP; +PACERONE 200 M200 M1 PO
[2020-12-28 14:32] VITALS: BP 130/80
[2020-12-28 20:00] VITALS: BP 140/83
[2020-12-29 04:35] LABS: HEMATOCRIT 42.1 % (42.0-52.0); HEMOGLOBIN 14.1 gm/dL (14.0-18.0); MCH 28.9 pg (26.0-34.0); MCHC 33.6 g/dL (28.0-37.0); MCV 86.2 fL (80.0-100.0); MPV 10.5 fl. (7.2-11.1); RBC 4.88 mil/uL (4.50-6.00); WBC 7.1 thou/uL (4.0-11.0)
[2020-12-29 04:49] LABS: CALCIUM 9.1 mg/dL (8.5-10.1); POTASSIUM 3.8 mmol/L (3.5-5.1)
[2020-12-29 07:40] VITALS: BP 127/76
[2020-12-29 19:00] VITALS: BP 128/64
[2020-12-30 04:44] LABS: HEMATOCRIT 41.2 % (42.0-52.0); HEMOGLOBIN 13.7 gm/dL (14.0-18.0); MCH 28.6 pg (26.0-34.0); MCHC 33.2 g/dL (28.0-37.0); MPV 9.9 fl. (7.2-11.1); RBC 4.8 mil/uL (4.50-6.00); RDW-CV 14.9 % (10.5-14.5); WBC 7.9 thou/uL (4.0-11.0)
[2020-12-30 04:59] LABS: POTASSIUM 4.2 mmol/L (3.5-5.1)
[2020-12-30 07:40] VITALS: BP 132/77
[2020-12-30 20:17] VITALS: BP 153/69
[2020-12-31 07:30] VITALS: BP 116/65
[2020-12-31 20:02] VITALS: BP 121/71
[2021-01-01 07:30] VITALS: BP 123/72
[2021-01-01 20:12] VITALS: BP 118/65
[2021-01-02 07:40] VITALS: BP 108/66
[2021-01-02 19:00] VITALS: BP 121/65
[2021-01-03 07:50] VITALS: BP 115/70
[2021-01-03 19:30] VITALS: BP 123/73
[2021-01-04 07:40] VITALS: BP 115/60
[2021-01-04 19:00] VITALS: BP 122/68
[2021-01-05 08:22] VITALS: BP 120/69
[2021-01-05 19:00] VITALS: BP 123/71
[2021-01-06 05:25] LABS: HEMATOCRIT 39.4 % (42.0-52.0); HEMOGLOBIN 13.2 gm/dL (14.0-18.0); MCH 29.2 pg (26.0-34.0); MCHC 33.5 g/dL (28.0-37.0); RBC 4.52 mil/uL (4.50-6.00); RDW-CV 14.9 % (10.5-14.5); WBC 5.1 thou/uL (4.0-11.0)
[2021-01-06 05:57] LABS: CALCIUM 9.1 mg/dL (8.5-10.1); POTASSIUM 3.7 mmol/L (3.5-5.1)
[2021-01-06 08:00] VITALS: BP 112/59
[2021-01-06 19:00] VITALS: BP 128/67
[2021-01-07 20:08] VITALS: BP 135/65
[2021-01-08 08:29] VITALS: BP 116/57
[2021-01-08 20:13] VITALS: BP 113/55
[2021-01-09 08:00] VITALS: BP 109/69
[2021-01-09 20:10] VITALS: BP 122/69
[2021-01-10 08:00] VITALS: BP 121/61
[2021-01-10 20:27] VITALS: BP 115/62
[2021-01-11 07:55] VITALS: BP 137/81
[2021-01-11 19:00] VITALS: BP 126/67
[2021-01-12 07:48] VITALS: BP 126/65
[2021-01-12 20:25] VITALS: BP 131/63
[2021-01-13 04:27] LABS: CALCIUM 9.1 mg/dL (8.5-10.1); POTASSIUM 3.6 mmol/L (3.5-5.1)
[2021-01-13 05:02] LABS: HEMATOCRIT 38.8 % (42.0-52.0); HEMOGLOBIN 12.9 gm/dL (14.0-18.0); MCHC 33.3 g/dL (28.0-37.0); MPV 8.7 fl. (7.2-11.1); RBC 4.46 mil/uL (4.50-6.00); RDW-CV 14.9 % (10.5-14.5); WBC 6.8 thou/uL (4.0-11.0)
[2021-01-13 08:00] VITALS: BP 115/76
[2021-01-13 19:50] VITALS: BP 120/63
[2021-01-14 08:00] VITALS: BP 133/71
[2021-01-14 20:00] VITALS: BP 133/64
[2021-01-15 08:00] VITALS: BP 119/69
[2021-01-15 14:28] LABS: ABSOLUTE LYMPHOCYTES 1.2 thou/uL (0.8-5.3); ABSOLUTE MONOCYTES 0.5 thou/uL (0.0-1.2); ABSOLUTE NEUTROPHILS 4.8 thou/uL (1.6-8.1); BASOPHILS 0.6 %; EOSINOPHILS 0.7 %; HEMATOCRIT 41.6 % (42.0-52.0); HEMOGLOBIN 13.8 gm/dL (14.0-18.0); LYMPHOCYTES 18.9 %; MCHC 33.2 g/dL (28.0-37.0); MCV 87.4 fL (80.0-100.0); MONOCYTES 7.5 %; MPV 7.9 fl. (7.2-11.1); NUCLEATED RBCS 0 /100WBC; PLATELET COUNT* 192 thou/uL (150-400); POLYS 72.3 %; RBC 4.76 mil/uL (4.50-6.00); RDW-CV 15.6 % (10.5-14.5); WBC 6.6 thou/uL (4.0-11.0)
[2021-01-15 14:34] LABS: CALCIUM 9.3 mg/dL (8.5-10.1); CREATININE 1.1 mg/dL (0.6-1.3); POTASSIUM 3.7 mmol/L (3.5-5.1)
[2021-01-15 19:40] VITALS: BP 131/58
[2021-01-16 08:00] VITALS: BP 109/57
[2021-01-16 17:57] LABS: ALBUMIN 3.6 g/dL (3.4-5.0); CALCIUM 8.8 mg/dL (8.5-10.1); CREATININE 0.9 mg/dL (0.6-1.3); TOTAL BILIRUBIN 0.4 mg/dL (<0.1-1.0); TOTAL PROTEIN 8.2 g/dL (6.4-8.2)
[2021-01-16 20:30] VITALS: BP 114/62
[2021-01-17 08:00] VITALS: BP 128/64
[2021-01-17 20:42] VITALS: BP 115/54
[2021-01-18 07:45] VITALS: BP 106/57
[2021-01-18 19:35] VITALS: BP 131/64
[2021-01-19 20:00] VITALS: BP 109/54
[2021-01-20 04:55] LABS: HEMOGLOBIN 12.9 gm/dL (14.0-18.0); MCH 29.7 pg (26.0-34.0); MCV 87.4 fL (80.0-100.0); MPV 8.4 fl. (7.2-11.1); RBC 4.35 mil/uL (4.50-6.00); WBC 6.5 thou/uL (4.0-11.0)
[2021-01-20 05:34] LABS: CREATININE 1.1 mg/dL (0.6-1.3); POTASSIUM 4.2 mmol/L (3.5-5.1)
[2021-01-20 07:40] VITALS: BP 115/56
[2021-01-20 19:00] VITALS: BP 142/73
[2021-01-21 07:44] VITALS: BP 117/59
[2021-01-21 20:09] VITALS: BP 109/50
[2021-01-22 08:10] VITALS: BP 127/67
[2021-01-22 20:10] VITALS: BP 132/63
[2021-01-23 07:20] VITALS: BP 118/59
[2021-01-23 20:04] VITALS: BP 116/56
[2021-01-24 07:50] VITALS: BP 108/51
[2021-01-24 20:00] VITALS: BP 114/61
[2021-01-25 08:00] VITALS: BP 106/55
[2021-01-25 19:00] VITALS: BP 115/50
[2021-01-26 07:48] VITALS: BP 112/61
[2021-01-26 19:00] VITALS: BP 126/65
[2021-01-27 04:39] LABS: CALCIUM 8.9 mg/dL (8.5-10.1); CREATININE 0.9 mg/dL (0.6-1.3); POTASSIUM 3.8 mmol/L (3.5-5.1)
[2021-01-27 04:44] LABS: HEMOGLOBIN 12.6 gm/dL (14.0-18.0); MCH 29.4 pg (26.0-34.0); MCV 86.5 fL (80.0-100.0); RBC 4.28 mil/uL (4.50-6.00); RDW-CV 15.1 % (10.5-14.5); WBC 5.8 thou/uL (4.0-11.0)
[2021-01-27 08:16] VITALS: BP 107/56
[2021-01-27 20:04] VITALS: BP 108/60
[2021-01-28 07:40] VITALS: BP 105/55
[2021-01-28 20:22] VITALS: BP 125/62
[2021-01-29 07:40] VITALS: BP 109/54
[2021-01-29 20:18] VITALS: BP 123/61
[2021-01-30 07:41] VITALS: BP 108/54
[2021-01-30 19:00] VITALS: BP 139/71
[2021-01-31 08:20] VITALS: BP 109/57
[2021-01-31 19:45] VITALS: BP 115/69
[2021-02-01 07:55] VITALS: BP 114/60
[2021-02-01 19:00] VITALS: BP 115/48
[2021-02-02 07:30] VITALS: BP 119/59
[2021-02-02 19:44] VITALS: BP 134/61
[2021-02-03 04:47] LABS: HEMATOCRIT 37.6 % (42.0-52.0); HEMOGLOBIN 12.8 gm/dL (14.0-18.0); MCH 29.3 pg (26.0-34.0); MCV 86.2 fL (80.0-100.0); MPV 7.9 fl. (7.2-11.1); RBC 4.36 mil/uL (4.50-6.00); RDW-CV 15.1 % (10.5-14.5); WBC 5.7 thou/uL (4.0-11.0)
[2021-02-03 05:28] LABS: POTASSIUM 3.9 mmol/L (3.5-5.1)
[2021-02-03 08:41] VITALS: BP 123/59
[2021-02-03 19:00] VITALS: BP 142/66
[2021-02-04 07:40] VITALS: BP 110/56
[2021-02-04 20:09] VITALS: BP 133/64
[2021-02-05 08:10] VITALS: BP 114/61
[2021-02-05 20:23] VITALS: BP 145/64
[2021-02-06 07:55] VITALS: BP 112/67
[2021-02-06 20:00] VITALS: BP 116/65
[2021-02-07 08:00] VITALS: BP 114/63
[2021-02-07 19:10] VITALS: BP 131/64
[2021-02-08 09:00] VITALS: BP 114/62
[2021-02-08 20:00] VITALS: BP 129/65
[2021-02-09 08:00] VITALS: BP 125/66
[2021-02-09 19:00] VITALS: BP 132/66
[2021-02-10 04:38] LABS: HEMATOCRIT 37.2 % (42.0-52.0); HEMOGLOBIN 12.7 gm/dL (14.0-18.0); MCH 29.2 pg (26.0-34.0); MCV 85.8 fL (80.0-100.0); MPV 8.2 fl. (7.2-11.1); RBC 4.33 mil/uL (4.50-6.00); RDW-CV 14.8 % (10.5-14.5); WBC 6.4 thou/uL (4.0-11.0)
[2021-02-10 04:45] LABS: CALCIUM 8.8 mg/dL (8.5-10.1); POTASSIUM 3.8 mmol/L (3.5-5.1)
[2021-02-10 09:28] VITALS: BP 124/61
[2021-02-10 20:00] VITALS: BP 109/68
[2021-02-11 07:54] VITALS: BP 105/61
[2021-02-11] MEDS ORDERED: LEXAPRO 10 MG T10 M2 PO (11:28)
[2021-02-11] MEDS ORDERED: LIPITOR40 MG PO (11:28)
[2021-02-11] MEDS ORDERED: PACERONE 200 M200 M1 PO (11:28)
[2021-02-11] MEDS ORDERED: ELIQUIS5 MG PO (11:28)
[2021-02-11 11:46] VITALS: BP 105/61
[2021-02-11 12:55] VITALS: BP 105/61
[2021-02-12] MEDS ORDERED: XARELTO20 MG PO (12:07)
== END 2021-02-11 17:15 | disposition home or self-care (01) | DRG 56 ==
LOC: M.REH 10:40
PROVIDERS: Internal Medicine; ADMIT Physical Medicine & Rehabilitation; ATTEND Physical Medicine & Rehabilitation
DX: I69.351 Hemiplegia and hemiparesis following cerebral infarction affecting right dominant side (principal); I63.9 Cerebral infarction, unspecified; I61.9 Nontraumatic intracerebral hemorrhage, unspecified; R47.01 Aphasia; D64.9 Anemia, unspecified; I10 Essential (primary) hypertension; K21.9 Gastro-esophageal reflux disease without esophagitis; I48.91 Unspecified atrial fibrillation; R13.10 Dysphagia, unspecified